=== PATIENT | female | born 1990 | race Caucasian/White ===

== ENCOUNTER 2016-06-19 15:53 | Emergency (ER) | payer MEDICAID ==
[~2016-06-19] VITALS: Ht 165.1 cm; Wt 104.3 kg
[2016-06-19 16:09] VITALS: BP 118/68
--- NOTE | 2016-06-19 19:25 | NUR ---
Patient ambulated to bed 07.
--- NOTE | 2016-06-19 19:30 | NUR ---
C/O LOW ABD PAIN AND DIARRHEA SINCE LAST NIGHT, PT. ALSO STATES HER BELLY BUTTON HURTS AND SHE HAS PUS COMING OUT. VSS AT THIS TIME. ERMD MADE AWARE.
--- NOTE | 2016-06-19 19:33 | NUR ---
Dr. Estrada evaluating patient at bedside.
[2016-06-19] MEDS ORDERED: HYDROmorphone 1 MG/ML AMP IVP ONE (20:40)
--- NOTE | 2016-06-19 20:44 | NUR ---
Patient going to CT via wheelchair per tech.
--- NOTE | 2016-06-19 21:04 | NUR ---
Patient back from CT via wheelchair per tech.
--- NOTE | 2016-06-19 21:40 | NUR ---
DR. ECKERT REEVALUATING PT AT BEDSIDE.
--- NOTE | 2016-06-19 21:52 | NUR ---
IV removed, catheter intact and site benign. Applied folded 4x4 gauze and tape to stop bleeding.
--- NOTE | 2016-06-19 21:53 | NUR ---
Note maria esther in EDM - 06/19/16 at 2210 by LASHAUN Patient discharged with v/s stable. Written and verbal after care instructions given and explained. Patient alert, oriented and verbalized understanding of instructions. Ambulatory with steady gait. All questions addressed prior to discharge. ID band removed. Patient advised to follow up with PMD. Rx of ZOFRAN ODT 4MG ORALLY DISINTEGRATING TABLET 1 TAB EVERY 8 HOURS BY MOUTH NEEDED FOR NAUSEA, NORCO 5MG-325MG TAB 1 TAB EVERY 6 HOURS BY MOUTH NEEDED FOR PAIN given. Patient educated on indication of medication including possible reaction and side effects. Opportunity to ask questions provided and answered.
--- NOTE | 2016-06-19 21:56 | NUR ---
PT COMPLAINT OF NAUSEA. DR. ECKERT NOTIFIED. WILL FOLLOW UP ORDERS.
[2016-06-19] MEDS ORDERED: ONDANSETRON 4 MG ODT PO ONE (22:05)
[2016-06-19 22:34] VITALS: BP 118/78
--- NOTE | 2016-06-19 22:34 | NUR ---
Patient discharged with v/s stable. Written and verbal after care instructions given and explained. Patient alert, oriented and verbalized understanding of instructions. Ambulatory with steady gait. All questions addressed prior to discharge. ID band removed. Patient advised to follow up with PMD. Rx of ZOFRAN ODT 4MG ORALLY DISINTEGRATING TABLET 1 TAB EVERY 8 HOURS BY MOUTH NEEDED FOR NAUSEA, NORCO 5MG-325MG TAB 1 TAB EVERY 6 HOURS BY MOUTH NEEDED FOR PAIN given. Patient educated on indication of medication including possible reaction and side effects. Opportunity to ask questions provided and answered.
== END 2016-06-19 22:34 | disposition home or self-care (01) ==
LOC: MED 15:53
DX: A08.4 Viral intestinal infection, unspecified (principal); J45.909 Unspecified asthma, uncomplicated
CPT/HCPCS: 36415; 74176; 80053; 81001; 81025; 82150; 83690; 85025; 96374; 99285; J1170; S0119

== ENCOUNTER 2016-09-09 01:35 | Emergency (ER) | payer MEDICAID ==
[~2016-09-09] VITALS: Ht 165.1 cm; Wt 95.3 kg
[2016-09-09 01:38] VITALS: BP 143/78
[2016-09-09 02:22] LABS: BASOPHILS # (AUTO) 0.2 K/uL (0.00-0.22); BASOPHILS % (AUTO) 1.4 % (0.0-2.0); EOSINOPHILS # (AUTO) 0.2 K/uL (0-0.4); HEMATOCRIT 36.4 % (36-48); HEMOGLOBIN 12.1 g/dL (12.0-16.0); LYMPHOCYTES # (AUTO) 2.6 K/uL (2.5-16.5); LYMPHOCYTES % (AUTO) 24.3 % (20.5-51.1); MEAN CORPUSCULAR HEMOGLOBIN 28 pg (27-31); MEAN CORPUSCULAR HGB CONC 33 g/dL (33-37); MEAN CORPUSCULAR VOLUME 85 fL (80-94); MONOCYTES # (AUTO) 0.6 K/uL (0.8-1.0); MONOCYTES % (AUTO) 5.2 % (1.7-9.3); NEUTROPHILS # (AUTO) 7.2 K/uL (1.8-7.7); NEUTROPHILS % (AUTO) 67.1 % (42.2-75.2); PLATELET COUNT (AUTO) 254 K/uL (140-450); RED BLOOD CELL COUNT(AUTO) 4.27 MIL/uL (4.20-5.40); RED CELL DISTRIBUTION WIDTH 13.4 % (11.6-13.7); WHITE BLOOD COUNT (AUTO) 10.8 K/uL (4.8-10.8)
[2016-09-09 02:29] LABS: APPEARANCE,URINE SL CLOUDY (CLEAR); BILIRUBIN,URINE NEGATIVE (NEGATIVE); BLOOD, URINE 1+ (NEGATIVE); COLOR,URINE YELLOW (YELLOW); LEUKOCYTE ESTERASE ,URINE NEGATIVE (NEGATIVE); NITRITE, URINE NEGATIVE (NEGATIVE); PH,URINE 6.5 (5.0-9.0); PROTEIN,URINE NEGATIVE (NEGATIVE); UGLUCOSE NEGATIVE (NEGATIVE)
[2016-09-09 02:44] LABS: ALBUMIN 3.4 g/dL (3.4-5.0); CALCIUM 8.1 mg/dL (8.5-10.1); CARBON DIOXIDE 28.8 mmol/L (21-32); CREATININE 0.7 mg/dL (0.6-1.3); POTASSIUM 3.8 mmol/L (3.5-5.1); TOTAL BILIRUBIN 0.2 mg/dL (0.0-1.0)
[2016-09-09 03:05] LABS: BACTERIA,URINE FEW /HPF (None Seen); WBC,URINE 0-5 (RARE) /HPF (0-5)
--- NOTE | 2016-09-09 03:53 | NUR ---
TO ER BED 4
--- NOTE | 2016-09-09 03:55 | NUR ---
PATIENT PRESENTS TO ED WITH LOWER ABD PAIN RADIATING TO HER LOWER BACK FOR 2 DAYS . PT STATES MED HX OF ASTHMA . DENIES N/V; SKIN IS PINK/WARM/DRY; AAOX4 WITH EVEN AND STEADY GAIT; LUNGS CLEAR BL; HR EVEN AND REGULAR; PT DENIES ANY FEVER, CP, SOB, OR COUGH AT THIS TIME; PATIENT STATES PAIN OF 8/10 AT THIS TIME; VSS; PATIENT POSITIONED FOR COMFORT; HOB ELEVATED; BEDRAILS UP X2; BED DOWN. ER MD MADE AWARE OF PT STATUS.
[2016-09-09] MEDS ORDERED: NACL 0.9% 1,000 ML IV ONE ×2 (04:50→05:55)
[2016-09-09] MEDS ORDERED: HYDROmorphone 1 MG/ML AMP IVP ONE (04:50)
--- NOTE | 2016-09-09 05:10 | NUR ---
PT APPEARS TO BE RESTING IN BED. NO SOB NOTED AT THIS TIME. WILL CONTINUE TO CLOSELY MONITOR.
[2016-09-09] MEDS ORDERED: ONDANSETRON 4 MG/2 ML VIAL IVP ONE (06:05)
--- NOTE | 2016-09-09 06:40 | NUR ---
PT APPEARS TO BE RESTING IN BED. NO SOB NOTED AT THIS TIME. FAMILY AT BEDSIDE. WILL CONTINUE TO MONITOR.
--- NOTE | 2016-09-09 07:19 | NUR ---
Pt report given to AD HUYNH. Transfer of care at this time.
[2016-09-09 07:39] VITALS: BP 124/70
== END 2016-09-09 07:39 | disposition home or self-care (01) ==
LOC: MED 01:35
CPT/HCPCS: 36415; 74178; 80053; 81001; 81025; 82150; 83690; 84703; 85025; 96361; 96374; 96375; 99285; J1170; J2405; J7030; Q9967

== ENCOUNTER 2016-11-30 19:45 | Emergency (ER) | payer MEDICAID ==
[~2016-11-30] VITALS: Ht 165.1 cm; Wt 100.7 kg
[2016-11-30 20:07] VITALS: BP 147/83
--- NOTE | 2016-11-30 20:23 | NUR ---
PT AMBULATED TO OF2
--- NOTE | 2016-11-30 20:45 | NUR ---
PT BIB FAMILY C/O RT GREAT TOE PAIN. HIT TOE PLAYING SOCCER 1 MONTH AGO, HIT AGAIN TODAY. PAIN 10/20. MED HX: ASTHMAPT DENIES N/V/D; SKIN IS INTACT, PINK/WARM/DRY; AAOX4, PERRL, WITH EVEN AND STEADY GAIT; LUNGS CLEAR BL, BREATHING UNLABORED; HR EVEN AND REGULAR, BL PERIPHERAL PULSES PRESENT; BS ACTIVE X4, NO TENDERNESS TO PALPATION. PT DENIES ANY FEVER, CP, SOB, OR COUGH AT THIS TIME; PT STATES 4/10 PAIN AT THIS TIME; VSS; PATIENT POSITIONED FOR COMFORT; HOB ELEVATED; BEDRAILS UP X2; BED DOWN.
[2016-12-01 00:10] VITALS: BP 140/71
== END 2016-11-30 21:47 | disposition home or self-care (01) ==
LOC: MED 19:45
DX: S91.204A Unspecified open wound of right lesser toe(s) with damage to nail, initial encounter (principal); J45.909 Unspecified asthma, uncomplicated; W22.09XA Striking against other stationary object, initial encounter; Y93.66 Activity, soccer; Y92.89 Other specified places as the place of occurrence of the external cause; Y99.8 Other external cause status
CPT/HCPCS: 73630; 99284

== ENCOUNTER 2017-06-30 01:05 | Emergency (ER) | payer MEDICAID ==
[~2017-06-30] VITALS: Ht 165.1 cm; Wt 95.3 kg
[2017-06-30 01:20] VITALS: BP 135/80
--- NOTE | 2017-06-30 01:25 | NUR ---
TO ER BED 3
[2017-06-30] MEDS ORDERED: NACL 0.9% 500 ML IV ONE (01:26)
[2017-06-30] MEDS ORDERED: KETOROLAC 30 MG/ML VIAL IVP ONE (01:30)
[2017-06-30] MEDS ORDERED: ONDANSETRON 4 MG/2 ML VIAL IVP ONE (01:30)
--- NOTE | 2017-06-30 01:30 | NUR ---
26YO F PATIENT PRESENTS TO ED WITH ABD PAIN TO UPPER RIGHT QUADRENT X2DAYS. PT STATES BURNING AND SHARP PAIN WITH NAUSEA. DENIES V/D; SKIN IS PINK/WARM/DRY; AAOX4 WITH EVEN AND STEADY GAIT; LUNGS CLEAR BL; HR EVEN AND REGULAR; PT DENIES ANY FEVER, CP, SOB, OR COUGH AT THIS TIME; PATIENT STATES PAIN OF 5/10 AT THIS TIME; VSS; PATIENT POSITIONED FOR COMFORT; HOB ELEVATED; BEDRAILS UP X2; BED DOWN. ER MD MADE AWARE OF PT STATUS.
--- NOTE | 2017-06-30 02:00 | NUR ---
PT RETURN FROM CT
--- NOTE | 2017-06-30 03:11 | NUR ---
PT TO XRAY VIA W/C ACCOMPANIED BY HAND STRAIGHTENER
[2017-06-30 03:39] VITALS: BP 132/80
--- NOTE | 2017-06-30 03:48 | NUR ---
Patient discharged with v/s stable. Written and verbal after care instructions given and explained. Patient alert, oriented and verbalized understanding of instructions. Ambulatory with steady gait. All questions addressed prior to discharge. ID band removed. Patient advised to follow up with PMD. Rx of MIRALAX POWDER 17GM given. Patient educated on indication of medication including possible reaction and side effects. Opportunity to ask questions provided and answered.
== END 2017-06-30 03:39 | disposition home or self-care (01) ==
LOC: MED 01:05
DX: K59.00 Constipation, unspecified (principal); R03.0 Elevated blood-pressure reading, without diagnosis of hypertension; J45.909 Unspecified asthma, uncomplicated
CPT/HCPCS: 74018; 74176; 81025; 96361; 96374; 96375; 99284; J1885; J2405; J7030

== ENCOUNTER 2017-08-17 12:44 | Emergency (ER) | payer MEDICAID ==
[~2017-08-17] VITALS: Ht 170.2 cm; Wt 103.0 kg
[2017-08-17 12:47] VITALS: BP 141/88
--- NOTE | 2017-08-17 12:50 | NUR ---
PATIENT PRESENTS TO ED WITH COMPLAINTS OF NUCAL RIGIDITY WITH RADIATING PAIN TO BACK. PATIENT DENIES TRAUMA. DENIES N/V/D; SKIN IS PINK/WARM/DRY; AAOX4 WITH EVEN AND STEADY GAIT; LUNGS CLEAR BL; HR EVEN AND REGULAR; PT DENIES ANY FEVER, CP, SOB, OR COUGH AT THIS TIME; PATIENT STATES PAIN OF 8/10 AT THIS TIME; VSS; PATIENT POSITIONED FOR COMFORT; HOB ELEVATED; BEDRAILS UP X1; BED DOWN. ER MD MADE AWARE OF PT STATUS.
[2017-08-17] MEDS ORDERED: HYDROcodone/APAP 5/325 MG 1 TAB TAB PO ONE (14:35)
[2017-08-17] MEDS ORDERED: KETOROLAC 60 MG/2 ML VIAL IM ONE (14:35)
[2017-08-17] MEDS ORDERED: DIAZEPAM 5 MG TAB PO ONE (14:35)
[2017-08-17 15:24] VITALS: BP 141/88
--- NOTE | 2017-08-17 15:24 | NUR ---
Patient discharged with v/s stable. Written and verbal after care instructions given and explained. Patient alert, oriented and verbalized understanding of instructions. Ambulatory with steady gait. All questions addressed prior to discharge. ID band removed. Patient advised to follow up with PMD. Rx of MOTRIN AND ROBAXIN given. Patient educated on indication of medication including possible reaction and side effects. Opportunity to ask questions provided and answered.
== END 2017-08-17 15:24 | disposition home or self-care (01) ==
LOC: MED 12:44
DX: S16.1XXA Strain of muscle, fascia and tendon at neck level, initial encounter (principal); J45.909 Unspecified asthma, uncomplicated; X58.XXXA Exposure to other specified factors, initial encounter; Y93.89 Activity, other specified; Y92.89 Other specified places as the place of occurrence of the external cause; Y99.8 Other external cause status
CPT/HCPCS: 81025; 96372; 99283; J1885

== ENCOUNTER 2017-10-25 02:05 | Emergency (ER) | payer MEDICAID ==
[~2017-10-25] VITALS: Ht 165.1 cm; Wt 99.8 kg
[2017-10-25 02:20] VITALS: BP 139/81
[2017-10-25] MEDS ORDERED: IBUP-2213 PO (02:24)
--- NOTE | 2017-10-25 02:26 | NUR ---
PT AMBULATED TO BED 11 WITH VSS.
--- NOTE | 2017-10-25 02:30 | NUR ---
PATIENT PRESENTS TO ED WITH RIGHT JAW PAIN X1 DAY. PATIENT STATES SHE HAD A TOOTH EXTRACTION YESTERDAY AND HAS PAIN 8/10 AT THIS TIME. PATIENT STATES SHE WAS NOT GIVEN ANY PAIN MEDICATION FROM HER DENTIST AND HAS TAKEN TYLENOL AND IBUPROFEN AT HOME WITH NO RELIEF. PATIENT STATES N/V AT THIS TIME. ER MD MADE AWARE OF PATIENT STATUS. WILL CONTINUE TO MONITOR PATIENT.
[2017-10-25] MEDS ORDERED: KETOROLAC 60 MG/2 ML VIAL IM ONE (02:55)
[2017-10-25 03:16] VITALS: BP 139/81
--- NOTE | 2017-10-25 03:16 | NUR ---
Patient discharged with v/s stable. Written and verbal after care instructions given and explained. Patient alert, oriented and verbalized understanding of instructions. Ambulatory with steady gait. All questions addressed prior to discharge. ID band removed. Patient advised to follow up with PMD. Rx of PERCOCET given. Patient educated on indication of medication including possible reaction and side effects. Opportunity to ask questions provided and answered.
== END 2017-10-25 03:16 | disposition home or self-care (01) ==
LOC: MED 02:05
DX: G89.18 Other acute postprocedural pain (principal); J45.909 Unspecified asthma, uncomplicated; Z79.1 Long term (current) use of non-steroidal anti-inflammatories (NSAID)
CPT/HCPCS: 96372; 99283; J1885

== ENCOUNTER 2018-03-06 16:41 | Emergency (ER) | payer MEDICAID ==
[~2018-03-06] VITALS: Ht 165.1 cm; Wt 99.8 kg
[~2018-03-06 16:41] MED LIST: IBUP-2213 PO
[2018-03-06 16:48] VITALS: BP 123/69
[2018-03-06] MEDS ORDERED: NACL 0.9% 1,000 ML IV SCH (17:11)
[2018-03-06] MEDS ORDERED: MORPHINE SULFATE 4 MG/ML SYR IM ONE (17:15)
[2018-03-06] MEDS ORDERED: LACTULOSE 20 GM/30 ML UDC PO ONE (17:15)
[2018-03-06] MEDS ORDERED: DICYCLOMINE HCL LIQUID 10 MG/5 ML UDC PO ONE (17:15)
[2018-03-06] MEDS ORDERED: KETOROLAC 60 MG/2 ML VIAL IM ONE (17:15)
[2018-03-06 17:37] LABS: BASOPHILS # (AUTO) 0.1 K/uL (0.00-0.22); EOSINOPHILS # (AUTO) 0.1 K/uL (0-0.4); EOSINOPHILS % (AUTO) 1.4 % (0.0-4.0); HEMATOCRIT 38.5 % (36-48); HEMOGLOBIN 12.6 g/dL (12.0-16.0); LYMPHOCYTES # (AUTO) 1.6 K/uL (2.5-16.5); LYMPHOCYTES % (AUTO) 21.2 % (20.5-51.1); MEAN CORPUSCULAR HEMOGLOBIN 27 pg (27-31); MEAN CORPUSCULAR HGB CONC 33 g/dL (33-37); MEAN CORPUSCULAR VOLUME 83.9 fL (80-94); MONOCYTES # (AUTO) 0.6 K/uL (0.8-1.0); MONOCYTES % (AUTO) 7.7 % (1.7-9.3); NEUTROPHILS # (AUTO) 5.1 K/uL (1.8-7.7); NEUTROPHILS % (AUTO) 68.7 % (42.2-75.2); PLATELET COUNT (AUTO) 257 K/uL (140-450); RED BLOOD CELL COUNT(AUTO) 4.59 MIL/uL (4.20-5.40); RED CELL DISTRIBUTION WIDTH 14.4 % (11.6-13.7); WHITE BLOOD COUNT (AUTO) 7.4 K/uL (4.8-10.8)
[2018-03-06 17:44] LABS: ANION GAP 11.9 (8-16); CARBON DIOXIDE 26.5 mmol/L (21-32); CREATININE 0.7 mg/dL (0.6-1.3); POTASSIUM 4.4 mmol/L (3.5-5.1)
[2018-03-06] MEDS ORDERED: KETOROLAC 30 MG/ML VIAL IVP ONE (17:50)
[2018-03-06] MEDS ORDERED: MORPHINE SULFATE 4 MG/ML SYR IVP ONE (17:50)
[2018-03-06 17:51] LABS: ALBUMIN 3.9 g/dL (3.4-5.0); TOTAL BILIRUBIN 0.5 mg/dL (0.0-1.0)
[2018-03-06 18:29] LABS: BARBITURATE, URINE NEG. ng/ml (NEG <=200); BENZODIAZEPINE, URINE NEG. ng/mL (NEG <=200); CANNABINOID, URINE NEG. ng/mL (NEG <=50); COCAINE, URINE NEG. ng/mL (NEG <=300); OPIATE, URINE NEG. ng/mL (NEG <=2000); PHENCYCLIDINE SCREEN,URINE NEG. ng/mL (NEG <=25)
[2018-03-06 18:35] LABS: APPEARANCE,URINE CLEAR (CLEAR); BILIRUBIN,URINE NEGATIVE (NEGATIVE); BLOOD, URINE 1+ (NEGATIVE); COLOR,URINE YELLOW (YELLOW); LEUKOCYTE ESTERASE ,URINE NEGATIVE (NEGATIVE); NITRITE, URINE NEGATIVE (NEGATIVE); UGLUCOSE NEGATIVE (NEGATIVE)
[2018-03-06 18:38] LABS: RBC,URINE 3-10 (FEW) /HPF (0-5); WBC,URINE 0-5 (RARE) /HPF (0-5)
[2018-03-06 19:10] VITALS: BP 118/64
== END 2018-03-06 19:10 | disposition home or self-care (01) ==
LOC: MED 16:41
DX: R10.84 Generalized abdominal pain (principal); J45.909 Unspecified asthma, uncomplicated; Z79.1 Long term (current) use of non-steroidal anti-inflammatories (NSAID)
CPT/HCPCS: 36415; 74176; 80053; 80305; 81001; 82150; 83690; 84703; 85025; 87086; 96361; 96374; 96375; 99284; J1885; J2270; J7030

== ENCOUNTER 2018-05-07 11:51 | Emergency (ER) | payer MEDICAID ==
[~2018-05-07] VITALS: Ht 165.1 cm; Wt 100.8 kg
[2018-05-07 12:20] VITALS: BP 138/96
--- NOTE | 2018-05-07 12:34 | NUR ---
PATIENT AMBULATED TO ER BED 9
[2018-05-07 12:57] LABS: BASOPHILS # (AUTO) 0.1 K/uL (0.00-0.22); BASOPHILS % (AUTO) 0.4 % (0.0-2.0); EOSINOPHILS # (AUTO) 0.1 K/uL (0-0.4); EOSINOPHILS % (AUTO) 0.5 % (0.0-4.0); HEMATOCRIT 40.2 % (36-48); HEMOGLOBIN 13.2 g/dL (12.0-16.0); LYMPHOCYTES # (AUTO) 1.2 K/uL (2.5-16.5); LYMPHOCYTES % (AUTO) 8.8 % (20.5-51.1); MEAN CORPUSCULAR HEMOGLOBIN 28 pg (27-31); MEAN CORPUSCULAR HGB CONC 33 g/dL (33-37); MEAN CORPUSCULAR VOLUME 83.8 fL (80-94); MONOCYTES # (AUTO) 0.7 K/uL (0.8-1.0); MONOCYTES % (AUTO) 5.3 % (1.7-9.3); NEUTROPHILS # (AUTO) 11.8 K/uL (1.8-7.7); PLATELET COUNT (AUTO) 239 K/uL (140-450); RED BLOOD CELL COUNT(AUTO) 4.79 MIL/uL (4.20-5.40); RED CELL DISTRIBUTION WIDTH 14.2 % (11.6-13.7); WHITE BLOOD COUNT (AUTO) 13.9 K/uL (4.8-10.8)
[2018-05-07 13:06] LABS: ANION GAP 13.3 (8-16); CARBON DIOXIDE 26.9 mmol/L (21-32); CREATININE 0.7 mg/dL (0.6-1.3); POTASSIUM 4.2 mmol/L (3.5-5.1)
[2018-05-07 13:11] LABS: TOTAL BILIRUBIN 0.9 mg/dL (0.0-1.0)
--- NOTE | 2018-05-07 13:20 | NUR ---
PATIENT PRESENTS TO ED WITH C/O GENERALIZED SHARP ABDOMINAL PAIN WITH N/V , RADIATING TO LOWER BACK X 3 DAYS---EXACERBATED TODAY DENIES DYSURIA OR RECENT INJURY . SKIN IS PINK/WARM/DRY; AAOX4 WITH EVEN AND STEADY GAIT; LUNGS CLEAR BL; HR EVEN AND REGULAR; PT DENIES ANY FEVER, CP, SOB, OR COUGH AT THIS TIME; PATIENT STATES PAIN OF 8/10 AT THIS TIME; VSS; PATIENT POSITIONED FOR COMFORT; HOB ELEVATED; BEDRAILS UP X2; BED DOWN. ER MD MADE AWARE OF PT STATUS.
[2018-05-07] MEDS ORDERED: METOCLOPRAMIDE 10 MG/2 ML INJ VIAL IM ONE (13:40)
[2018-05-07] MEDS ORDERED: KETOROLAC 60 MG/2 ML VIAL IM ONE (13:40)
[2018-05-07] MEDS ORDERED: hydrOXYzine HCL 25 MG TAB PO ONE (13:40)
[2018-05-07] MEDS ORDERED: ONDANSETRON 4 MG ODT PO ONE (13:40)
[2018-05-07] MEDS ORDERED: PROMETHAZINE 25 MG/ML VIAL IM ONE (13:40)
--- NOTE | 2018-05-07 14:09 | NUR ---
influenza swab collected and lab called
--- NOTE | 2018-05-07 14:42 | NUR ---
Pauly mayo in [facility] - 05/07/18 at 1443 by MEDHT Patient being evaluated by physician at bedside.
[2018-05-07 15:30] LABS: APPEARANCE,URINE CLEAR (CLEAR); BILIRUBIN,URINE NEGATIVE (NEGATIVE); BLOOD, URINE 2+ (NEGATIVE); COLOR,URINE YELLOW (YELLOW); LEUKOCYTE ESTERASE ,URINE NEGATIVE (NEGATIVE); NITRITE, URINE NEGATIVE (NEGATIVE); UGLUCOSE NEGATIVE (NEGATIVE)
[2018-05-07 15:57] LABS: RBC,URINE 3-10 (FEW) /HPF (0-5)
[2018-05-07 15:58] LABS: WBC,URINE 0-5 (RARE) /HPF (0-5)
--- NOTE | 2018-05-07 16:40 | NUR ---
Patient discharged with v/s stable. Written and verbal after care instructions given and explained. Patient alert, oriented and verbalized understanding of instructions. Ambulatory with steady gait. All questions addressed prior to discharge. ID band removed. Patient advised to follow up with PMD. Rx of levaquin/promethazine/prednisone given. Patient educated on indication of medication including possible reaction and side effects. Opportunity to ask questions provided and answered.
[2018-05-07 16:43] VITALS: BP 128/78
== END 2018-05-07 16:40 | disposition home or self-care (01) ==
LOC: MED 11:51
DX: J32.9 Chronic sinusitis, unspecified (principal); R10.9 Unspecified abdominal pain; R19.7 Diarrhea, unspecified; J45.909 Unspecified asthma, uncomplicated; Z79.1 Long term (current) use of non-steroidal anti-inflammatories (NSAID)
CPT/HCPCS: 36415; 80053; 81001; 81025; 85025; 87804; 96372; 99283; J1885; J2550; J2765; Q0162

== ENCOUNTER 2018-10-12 12:14 | Emergency (ER) | payer MEDICAID ==
[~2018-10-12] VITALS: Ht 165.1 cm; Wt 103.4 kg
[2018-10-12 12:30] VITALS: BP 137/81
[2018-10-12] MEDS ORDERED: IBUPROFEN 600 MG TAB PO ONE (12:45)
[2018-10-12 13:11] LABS: APPEARANCE,URINE SL CLOUDY (CLEAR); BILIRUBIN,URINE NEGATIVE (NEGATIVE); BLOOD, URINE 1+ (NEGATIVE); COLOR,URINE YELLOW (YELLOW); LEUKOCYTE ESTERASE ,URINE NEGATIVE (NEGATIVE); NITRITE, URINE NEGATIVE (NEGATIVE); PH,URINE 5.5 (5.0-9.0); UGLUCOSE NEGATIVE (NEGATIVE)
[2018-10-12 13:24] LABS: RBC,URINE 0-5 /HPF (0-5); WBC,URINE 0-5 /HPF (0-5)
[2018-10-12] MEDS ORDERED: FLUCONAZOLE 100 MG TAB PO ONE (14:05)
[2018-10-12 14:32] VITALS: BP 131/79
[2018-10-14 07:09] LABS: CHLAMYDIA TRACHOMATIS AMP DNA Negative (Negative)
== END 2018-10-12 14:32 | disposition home or self-care (01) ==
LOC: MED 12:14
DX: B37.3 Candidiasis of vulva and vagina (principal); J45.909 Unspecified asthma, uncomplicated; Z79.899 Other long term (current) drug therapy
CPT/HCPCS: 36415; 76830; 76856; 81001; 81025; 84702; 87210; 87491; 99284; Q0092; 81002

== ENCOUNTER 2019-08-21 21:57 | Emergency (ER) | payer MEDICAID, SELFPAY ==
[~2019-08-21] VITALS: Ht 165.1 cm; Wt 99.8 kg
[2019-08-21 22:50] VITALS: BP 127/72
--- NOTE | 2019-08-21 23:21 | NUR ---
COLLECTED COVID SWAB AND SENT TO LAB.
--- NOTE | 2019-08-21 23:30 | NUR ---
ERMD AT THE TENT TO EVAL PT.
--- NOTE | 2019-08-21 23:40 | NUR ---
ALBIN SUMMERS ASSESSED PT.
[2019-08-21 23:46] VITALS: BP 127/72
--- NOTE | 2019-08-21 23:46 | NUR ---
Patient discharged with v/s stable. Written and verbal after care instructions given and explained. Patient alert, oriented and verbalized understanding of instructions. Ambulatory with steady gait. All questions addressed prior to discharge. ID band removed. Patient advised to follow up with PMD. Rx of NORCO, MOTRIN given. Patient educated on indication of medication including possible reaction and side effects. Opportunity to ask questions provided and answered.
--- NOTE | 2019-08-24 12:07 | NUR ---
er md dr arreguin notifted sts "I will call the pt and let her know the results" copy sent to [facility] and infection [facility].
== END 2019-08-21 23:46 | disposition home or self-care (01) ==
LOC: EEVIPCON 21:57 → MED 21:57
DX: R50.9 Fever, unspecified (principal); J45.909 Unspecified asthma, uncomplicated; Z79.899 Other long term (current) drug therapy; Z20.828 Contact with and (suspected) exposure to other viral communicable diseases
CPT/HCPCS: 99283; U0003

== ENCOUNTER 2020-10-29 19:23 | Emergency (ER) | payer MEDICAID, SELFPAY ==
[~2020-10-29] VITALS: Ht 165.1 cm; Wt 95.3 kg
[2020-10-29 19:30] VITALS: BP 135/84
--- NOTE | 2020-10-29 19:33 | NUR ---
TO LOBBY A/W BED AMBULATORY
[2020-10-29] MEDS ORDERED: MORPHINE SULFATE 4 MG/ML SYR IVP ONE ×2 (21:00→22:20)
[2020-10-29] MEDS ORDERED: ONDANSETRON 4 MG/2 ML VIAL IVP ONE (21:00)
--- NOTE | 2020-10-29 21:15 | NUR ---
MOVED TO ER BED 11
--- NOTE | 2020-10-29 21:15 | NUR ---
RECEIVED IN BED 11 WITH C/O FLANK PAIN X 3 MONTHS. IV ESTABLISHED, LABS DRAWN
[2020-10-29 21:34] LABS: BASOPHILS # (AUTO) 0.1 K/uL (0.00-0.22); BASOPHILS % (AUTO) 0.9 % (0.0-2.0); EOSINOPHILS # (AUTO) 0.1 K/uL (0-0.4); EOSINOPHILS % (AUTO) 1.1 % (0.0-4.0); HEMATOCRIT 40.3 % (36-48); HEMOGLOBIN 13.3 g/dL (12.0-16.0); LYMPHOCYTES # (AUTO) 2.8 K/uL (2.5-16.5); LYMPHOCYTES % (AUTO) 31.2 % (20.5-51.1); MEAN CORPUSCULAR HEMOGLOBIN 29 pg (27-31); MEAN CORPUSCULAR HGB CONC 33 g/dL (33-37); MONOCYTES # (AUTO) 0.4 K/uL (0.8-1.0); NEUTROPHILS # (AUTO) 5.5 K/uL (1.8-7.7); NEUTROPHILS % (AUTO) 61.8 % (42.2-75.2); PLATELET COUNT (AUTO) 276 K/uL (140-450); RED BLOOD CELL COUNT(AUTO) 4.63 MIL/uL (4.20-5.40); RED CELL DISTRIBUTION WIDTH 13.7 % (11.6-13.7); WHITE BLOOD COUNT (AUTO) 8.9 K/uL (4.8-10.8)
[2020-10-29 21:53] LABS: ALBUMIN 4.1 g/dL (3.4-5.0); ANION GAP 9.7 (8-16); CARBON DIOXIDE 28.1 mmol/L (21-32); CREATININE 0.7 mg/dL (0.6-1.3); POTASSIUM 3.8 mmol/L (3.5-5.1); TOTAL BILIRUBIN 0.6 mg/dL (0.0-1.0)
[2020-10-29] MEDS ORDERED: KETOROLAC 15 MG/ML VIAL IVP ONE (22:20)
[2020-10-29 22:22] LABS: APPEARANCE,URINE CLEAR (CLEAR); BILIRUBIN,URINE NEGATIVE (NEGATIVE); BLOOD, URINE TRACE-I (NEGATIVE); COLOR,URINE YELLOW (YELLOW); LEUKOCYTE ESTERASE ,URINE NEGATIVE (NEGATIVE); NITRITE, URINE NEGATIVE (NEGATIVE); UGLUCOSE NEGATIVE (NEGATIVE)
[2020-10-29 22:27] LABS: RBC,URINE 0-5 /HPF (0-5); WBC,URINE 0-5 /HPF (0-5)
--- NOTE | 2020-10-29 22:35 | NUR ---
PAIN HAS RETURNED. ADDITIONAL PAIN MEDS ORDERED
--- NOTE | 2020-10-30 01:40 | NUR ---
US AT BEDSIDE
[2020-10-30] MEDS ORDERED: CEPH-588 PO (02:47)
[2020-10-30] MEDS ORDERED: IBUP-2218 PO (02:47)
[2020-10-30 02:59] VITALS: BP 132/71
--- NOTE | 2020-10-30 03:09 | NUR ---
d/c with VSS. d/c education given. opportunity to ask questions given and answered. rx of motrin and Keflex given. IV site removed, bleeding controlled with sterile gauze and reinforced with tape.
== END 2020-10-30 03:07 | disposition home or self-care (01) ==
LOC: MED 19:23
DX: R10.11 Right upper quadrant pain (principal); R10.31 Right lower quadrant pain; J45.909 Unspecified asthma, uncomplicated; Z90.49 Acquired absence of other specified parts of digestive tract; Z79.1 Long term (current) use of non-steroidal anti-inflammatories (NSAID)
CPT/HCPCS: 36415; 74176; 76705; 80053; 81001; 81025; 83690; 85025; 87086; 96374; 96375; 96376; 99284; J1885; J2270; J2405

== ENCOUNTER 2022-09-26 09:03 | Emergency (ER) | payer MEDICAID ==
[~2022-09-26] VITALS: Ht 172.7 cm; Wt 95.3 kg
[~2022-09-26 09:03] MED LIST changes: +CEPH-588 PO; +IBUP-2218 PO
[2022-09-26 09:28] VITALS: BP 94/57; PULSE 57; RESP 18; TEMP 98.8; O2SAT 98
[2022-09-26] MEDS ORDERED: NACL 0.9% 1,000 ML IV ONE (09:45)
--- NOTE | 2022-09-26 09:48 | NUR ---
PT WAS BROUGHT STAIGHT BACK AND TRIAGE AT BS. PT AWAITING TO BE SEEN.
--- NOTE | 2022-09-26 10:31 | NUR ---
RESTING IN BED, IV FLUIDS INFUSING
--- NOTE | 2022-09-26 11:22 | NUR ---
RESTING IN BED, WAITING FOR RE EVAL
[2022-09-26] MEDS ORDERED: IBUP-2213 PO (11:58)
[2022-09-26] MEDS ORDERED: ACET-8905 PO (11:58)
[2022-09-26] MEDS ORDERED: CEPH-588 PO (11:58)
[2022-09-26 12:47] VITALS: BP 115/71; PULSE 86; RESP 18; TEMP 98.8; O2SAT 98
== END 2022-09-26 12:49 | disposition home or self-care (01) ==
LOC: MED 09:03
DX: T81.49XA Infection following a procedure, other surgical site, initial encounter (principal); R10.30 Lower abdominal pain, unspecified; J45.909 Unspecified asthma, uncomplicated; Z90.49 Acquired absence of other specified parts of digestive tract; Z98.890 Other specified postprocedural states; Z79.899 Other long term (current) drug therapy
CPT/HCPCS: 96360; 99283; J7030